=== PATIENT | male | born 1965 | race Two or more races ===

== ENCOUNTER 2025-02-15 03:23 | Emergency (ER) | payer OTHER ==
[~2025-02-15] VITALS: Ht 177.8 cm; Wt 77.1 kg
[~2025-02-15 03:23] MED LIST: AVAPRO150 MG; REMERON15 MG; TOPROL XL25 M1; TRAZODONE HCL150 MG; VENLAFAXINE HC150 MG
[2025-02-15] MEDS ORDERED: FAMOTIDINE/PF 20 MG/2 ML VIAL IV PUSH STA (04:06)
[2025-02-15] MEDS ORDERED: ONDANSETRON HCL 2 MG/ML VIAL IV STA (04:06)
[2025-02-15] MEDS ORDERED: FAMOTIDINE/PF 20 MG/2 ML VIAL ONE (04:11)
[2025-02-15] MEDS ORDERED: ONDANSETRON HCL 2 MG/ML VIAL ONE (04:11)
[2025-02-15 05:22] LABS: BASO % 0.8 % (0.1-1.2); EOS # 0.17 (0.04-0.54); EOS % 2.6 % (0.7-7.0); LYMPH # 2.64 (1.18-3.74); LYMPH % 40.6 % (19.3-53.1); MEAN PLATELET VOLUME 10.90 fl (9.4-12.4); MONO # 0.53 (0.24-0.82); MONO % 8.2 % (4.7-12.5); NEUT # 3.10 (1.56-6.13); NEUT % 47.6 % (34.0-71.1); RED CELL DISTRIBUTION WIDTH 13.2 % (11.6-14.4)
[2025-02-15 06:03] LABS: ALT/SGPT 67.0 U/L (12-78); AST/SGOT 86.0 U/L (15-37); BILIRUBIN TOTAL 0.28 mg/dL (0.3-1.2); BUN CREA RATIO 13.0 (7.0-25.0); CREATININE SERUM 0.86 mg/dL (0.70-1.30); GFR 91.66; GLOBULINA 3.2 G/DL (2.4-3.5); GLUCOSE FASTING 77.0 mg/dL (65-100); OSMOLALITY SERUM 279.0 MOSM/KG (275-295)
== END 2025-02-15 06:17 | disposition home or self-care (01) ==
LOC: ER 03:23
PROVIDERS: General Practice
DX: R07.9 Chest pain, unspecified (principal); I10 Essential (primary) hypertension; K29.70 Gastritis, unspecified, without bleeding